=== PATIENT | female | born 1980 | race Caucasian/White ===

== ENCOUNTER 2019-01-22 06:20 | Inpatient (IN) | payer MEDICAID ==
[~2019-01-22] VITALS: Ht 162.6 cm; Wt 76.7 kg
[2019-01-22] MEDS ORDERED: PREN-93 PO (07:22)
[2019-01-22 07:30] VITALS: Ht 162.6 cm; Wt 76.7 kg
[2019-01-22] MEDS ORDERED: OXYTOCIN 30 UNITS/LR 500 ML IV SCH ×2 (07:30→11:22)
[2019-01-22] MEDS ORDERED: CARBOPROST 250 MCG INJ IM PRN ×2 (07:30→11:30)
[2019-01-22] MEDS ORDERED: MISOPROSTOL 200 MCG TAB PR PRN ×2 (07:30→11:30)
[2019-01-22] MEDS ORDERED: OXYTOCIN 30 UNITS/LR 500 ML IV PRN ×2 (07:30→11:30)
[2019-01-22] MEDS ORDERED: METHYLERGONOVINE 0.2 MG INJ IM PRN ×2 (07:30→11:30)
[2019-01-22] MEDS ORDERED: CEFAZOLIN 2 GM/50 ML (PMX) 50 ML IVPB ONE (07:30)
[2019-01-22 07:31] VITALS: BP 123/83; PULSE 82; RESP 20
[2019-01-22] MEDS: LACTATED RINGER'S 1,000 ML IV SCH ×3 (09:25→23:31)
[2019-01-22] MEDS ORDERED: AZITHROMYCIN 500MG/NS (PMX) 250 ML IVPB ONE (09:30)
--- NOTE | 2019-01-22 09:39 | PREAC ---
Date/Time of Note Date/Time of Note DATE: 01/22/19 TIME: 09:37 Anesthesia Eval and Record Evaluation Time Pre-Procedure Interview DATE: 01/22/19 TIME: 09:37 Age 38 Sex female NPO: 8 hrs Preoperative diagnosis Repeat Planned procedure Past Medical History Past Medical History: None Surgery & Anesthesia Issues No known issue Meds Anticoagulation: No Beta Ewelina within 24 hr: No Reason Beta Ewelina not given: Pt. not on B-Ewelina Reported Medications Vit No.124/Iron/FA ( Vitamin Tablet) 1 Each Tablet, 1 EACH PO DAILY, TAB 01/22/19 Current Medications Lactated Ringer's 1,000 ml @ 125 mls/hr Q8H IV Last administered on 01/22/19at 09:36; Admin Dose 125 MLS/HR; Start 01/22/19 at 07:26 Oxytocin/Lactated Ringer's 500 ml @ 500 mls/hr ONCE POST IV ; Start 01/22/19 at 07:30 Oxytocin/Lactated Ringer's 500 ml @ 125 mls/hr POST IV ; Start 01/22/19 at 07:30 Oxytocin/Lactated Ringer's 500 ml @ 0 mls/hr ONCE PRN IV .VAGINAL BLEEDING; Start 01/22/19 at 07:30 Methylergonovine Maleate (Methergine) 0.2 mg ONCE PRN IM .VAGINAL BLEEDING; Start 01/22/19 at 07:30 Carboprost Tromethamine (Hemabate) 250 mcg ONCE PRN IM .VAGINAL BLEEDING; Start 01/22/19 at 07:30 Misoprostol (Cytotec) 1,000 mcg ONCE PRN [place] .VAGINAL BLEEDING; Start 01/22/19 at 07:30 Azithromycin 250 ml @ 250 mls/hr ONCE ONCE IVPB ; Start 01/22/19 at 09:30; Stop 01/22/19 at 10:29 Meds reviewed: Yes Allergies Coded Allergies: No Known Allergy (Unverified , 01/22/19) Allergies Reviewed: Yes Labs/Studies Labs Reviewed: Reviewed by anesthesiologist Result Diagram: 01/22/19 8506 Laboratory Tests 01/22/19 07:50 test: N/A Pre-procedure Exam Last vitals Vital Signs Date Temp Pulse Resp B/P (MAP) Pulse Ox O2 O2 Flow FiO2 Time Delivery Rate 01/22/19 98.7 82 20 123/83 Room Air 07:31 (96) Airway: Adequate mouth opening Mallampati: Mallampati II Teeth: Normal Lung: Normal Heart: Normal ASA Physical Status ASA physical status: 2 Emergency: None Planned Anesthetic Neuraxial: Spinal Planned Pain Management Sub-arachniod narcotics Pre-operative Attestations Prior to commencing anesthesia and surgery, the patient was re-evaluated, there was verification of: *The patient's identity *The results of appropriate recent lab work and preoperative vital signs *The above evaluation not changing prior to induction *Anesthetic plan, risk benefits, alternative and complications discussed with patient/family; questions answered; patient/family understands, accepts and wishes to proceed. KELSEY NAPIER MD Jan 22, 2019 09:39
[2019-01-22] MEDS ORDERED: morphine SULFATE/PF (10 MG/10 ML) INJ ONE (09:42)
[2019-01-22] MEDS ORDERED: ONDANSETRON 4 MG INJ ONE (09:42)
[2019-01-22] MEDS ORDERED: PHENYLephrine (100 MCG/ML) 10ML SYG ONE (09:42)
[2019-01-22] MEDS ORDERED: OXYTOCIN 30 UNITS/LR 500 ML IV ONE (09:42)
[2019-01-22] MEDS ORDERED: OXYCODONE/ACETAMINOPHEN (5/325) TAB PO PRN (10:30)
[2019-01-22] MEDS ORDERED: MIDAZOLAM 1 MG/ML 2 ML INJ IV PRN (10:30)
[2019-01-22] MEDS ORDERED: FENTAnyl 50 MCG/ML VIAL IV PRN ×2 (10:30)
[2019-01-22] MEDS ORDERED: NALBUPHINE HCL (10 MG/1 ML) INJ IV PRN (10:30)
[2019-01-22] MEDS ORDERED: ALBUTEROL 0.083% (NEB) 2.5 MG/3 ML AMP HHN PRN (10:30)
[2019-01-22] MEDS ORDERED: NALOXONE (0.4 MG/ML) INJ IV PRN (10:30)
[2019-01-22] MEDS ORDERED: DIPHENHYDRAMINE 50 MG INJ IV PRN ×2 (10:30)
[2019-01-22] MEDS ORDERED: EPHEDrine 25 MG/5 ML SYG IV PRN (10:30)
[2019-01-22] MEDS ORDERED: morphine 2 MG INJ IV PRN ×2 (10:30)
[2019-01-22] MEDS ORDERED: HYDROmorphONE 1 MG/5 ML IV SYRINGE IV PRN (10:30)
[2019-01-22] MEDS ORDERED: ONDANSETRON 4 MG INJ IV PRN ×2 (10:30)
[2019-01-22] MEDS ORDERED: MEPERIDINE 25 MG INJ IV PRN (10:30)
[2019-01-22] MEDS ORDERED: IPRATROPIUM (NEB) 0.5 MG/2.5 ML AMP HHN PRN (10:30)
[2019-01-22] MEDS ORDERED: TRIMETHOBENZAMIDE 100 MG/ML VIAL IM PRN (10:30)
[2019-01-22] MEDS ORDERED: LABETALOL HCL 20MG INJ IV PRN (10:30)
[2019-01-22] MEDS ORDERED: KETOROLAC 30 MG INJ IV PRN ×2 (10:30)
[2019-01-22] MEDS: OXYTOCIN 30 UNITS/LR 500 ML IV SCH ×2 (11:14→15:12)
[2019-01-22] MEDS ORDERED: LACTATED RINGER'S 1,000 ML IV SCH (11:22)
[2019-01-22] MEDS ORDERED: METHYLERGONOVINE 0.2 MG TAB PO PRN (11:30)
[2019-01-22] MEDS ORDERED: LANOLIN HPA 1 PKT TOP PRN (11:30)
--- NOTE | 2019-01-22 12:01 | PREOPHP ---
DATE OF ADMISSION: 01/22/2019 HISTORY OF PRESENT ILLNESS: This is a 38-year-old lady, 5, para 2, EDC 01/27/2019, at 39 and 2/7 weeks, admitted to labor and delivery area for repeat . She had 2 previous C-sections. She is for repeat . She had care in [facility] and the care was uneventful. The procedures were explained to the patient and she understood everything totally. The risks, benefits, and alternatives were discussed with her as well. PAST PERSONAL HISTORY: No history of diabetes, TB, asthma. ALLERGIES: NO ALLERGIES. SOCIAL HISTORY: The patient does not smoke. She does not drink. MEDICATIONS: She does not take any drugs except her iron and vitamins. GYNECOLOGIC HISTORY: She had menarche at the age of 20, every 28 days interval, 3 to 4 days duration , and moderate in amount. FAMILY HISTORY: Noncontributory. OBSTETRICAL HISTORY: She is 5 para 2. Her first delivery was in 2006, second in 2010, both by . She had 2 abortions, one in 2013 and one in 2015, both first trimester of . REVIEW OF SYSTEMS: CARDIOVASCULAR: No chest pains. RESPIRATORY: No cough. GASTROINTESTINAL: No diarrhea, no vomiting. GENITOURINARY: No dysuria. PHYSICAL EXAMINATION: GENERAL: Reveals a conscious, coherent lady and in no acute distress. VITAL SIGNS: Her blood pressure 120/80, pulse rate 80 per minute, respirations 16 per minute. BREASTS, HEART AND LUNGS: Within normal limits. ABDOMEN: Soft, fundic height 38 cm. heart tones 140 per minute. PELVIC: Revealed the cervix to be 2 to 3 cm dilated, 100% effaced, station floating in cephalic pres entation with the bag of water intact. EXTREMITIES: No pedal edema. ADMITTING DIAGNOSIS: A 39 and 2/7 weeks' intrauterine in labor. The patient was planned t o have a repeat . The procedures were explained to the patient and she understood everythin g totally. The risks, benefits, and alternatives were discussed with her as well. Dictated By: ANABEL MUSTAFA/ANDRES Conf#: [id number] DID#: [id number]
--- NOTE | 2019-01-22 12:19 | PAC ---
Date/Time of Note Date/Time of Note DATE: 01/22/19 TIME: 12:19 Post-Anesthesia Notes Post-Anesthesia Note Last documented vital signs Vital Signs Date Temp Pulse Resp B/P (MAP) Pulse Ox O2 O2 Flow FiO2 Time Delivery Rate 01/22/19 98.7 82 20 123/83 Room Air 07:31 (96) Activity: WNL Respiratory function: WNL Cardiovascular function: WNL Mental status: Baseline Pain reasonably controlled: Yes Hydration appropriate: Yes Nausea/Vomiting absent: Yes KELSEY NAPIER MD Jan 22, 2019 12:19
--- NOTE | 2019-01-22 15:46 | OPR ---
DATE OF OPERATION: 01/22/2019 PREOPERATIVE DIAGNOSES: 1. A 39 and 2/7 weeks' intrauterine . 2. Previous section. 3. In early labor. POSTOPERATIVE DIAGNOSES: 1. A 39 and 2/7 weeks' intrauterine . 2. Previous section. 3. In early labor. OPERATION PERFORMED: Repeat low transverse section. SURGEON: Anabel Lopez MD DEPARTMENT CHAIR: Howard Mueller MD ANESTHESIA: Spinal. OPERATIVE TECHNIQUE: Under spinal anesthesia, the patient was prepped and draped in the usual fashio n for abdominal surgery. After checking for the effect of the anesthesia, the previous Pfannenstiel scar was excised. A 10 cm skin incision was performed. The incision was carried from the skin up to the fascia. Upon opening the skin up to the fascia, small blood vessels were noted to be oozing and these were all cauterized. Fascia was opened transversely followed by splitting the muscles vertica l, then the peritoneum vertically. Upon opening the abdominal cavity, the bladder blade was put in p lace. The lower uterine segment was noted to be paper thin. Then incision was performed about 2 inc hes above the lower uterine segment. An incision was carried from the serosa up to the endometrium a nd the lory was carried sideways with the aid of my 2 fingers. My left hand was inserted on the lowe r segment of the uterus and the bag of water was ruptured. Clear fluid was noted. Baby's head was d elivered with good fundal pressure. Baby's airway was quickly suctioned with amniotic fluid. The an terior shoulder and posterior shoulder and rest of the body of the baby was delivered. Cord was clam ped after 30 seconds. The baby's airway was quickly suctioned with amniotic fluid, then the baby was handed to the nursery nurse and weatherseal technician. The placenta was delivered manually and complete. The uterus was exteriorized. The uterus was cleansed with wet lap sponge to make sure that no feta l membranes were left behind. After correct sponge count, the uterus was closed in the usual fashion using #1 chromic for the first layer, continuous locking suture was used followed by #1 chromic for the second layer, imbricating sutures were used. Bleeders were checked and there was no bleeding not ed. After checking for any bleeders in which there were none, both tubes and ovaries were inspected. They were healthy looking. The back of the uterus where the broad ligament were checked for any he matoma and there was none noted. The uterus was pulled back to the pelvic cavity. Once again, uteri ne incision was checked for any bleeders and there was no bleeding noted. After correct sponge count , needle count and instrument count as confirmed by the signal maintenance technician and clerk carrier, the abdomen was cl osed in the usual fashion using 0 Vicryl for the peritoneum, 0 Vicryl for the muscles, for the fascia , 0 Vicryl continuous stitch was used followed by few [id number] sutures. For the subcutaneous tissue, it was closed with 3-0 Vicryl and the skin was closed with 3-0 Vicryl, subcuticular suture wa s used. The patient tolerated the procedure well. Estimated blood loss was about 600 mL. Vital sig ns were stable during and after the procedure. She delivered a healthy baby boy, 9 and 9, weig maribell 3250 grams, 7 pounds and 3 ounces, 18-1/4 inches long at 10:06 a.m. Dictated By: ANABEL MUSTAFA/ANDRES Conf#: [id number] DID#: [id number]
[2019-01-22 16:00] VITALS: BP 119/63; PULSE 75; RESP 18
[2019-01-22 17:00] VITALS: BP 119/63; PULSE 80; RESP 18
[2019-01-22 18:10] VITALS: BP 110/80; PULSE 76
[2019-01-22 19:55] VITALS: BP_SYST 101; BP_SYST 114; BP_DIAS 60; BP_DIAS 64; PULSE 75; PULSE 81; RESP 18
[2019-01-22] MEDS: SENNA/DOCUSATE NA (8.6MG/50MG) TAB PO SCH (23:08)
[2019-01-23 00:30] VITALS: BP 110/66; PULSE 78; RESP 18
[2019-01-23 04:02] VITALS: BP 108/68; PULSE 72; RESP 18
[2019-01-23 08:00] VITALS: BP 116/73; PULSE 85; RESP 18
[2019-01-23] MEDS: SENNA/DOCUSATE NA (8.6MG/50MG) TAB PO SCH ×2 (09:26→21:00)
[2019-01-23] MEDS: LACTATED RINGER'S 1,000 ML IV SCH ×3 (15:26→23:49)
[2019-01-23 16:00] VITALS: BP 112/80; PULSE 85; RESP 18
[2019-01-23] MEDS: IBUPROFEN 800 MG TAB PO PRN (17:16)
--- NOTE | 2019-01-23 18:52 | PN ---
Date/Time of Note Date/Time of Note DATE: 01/23/19 TIME: 18:51 Assessment/Plan VTE Prophylaxis Risk score (from Ns)>0 risk: 1 SCD applied (from Ns): Yes Pharmacological prophylaxis: NA/contraindicated Pharm contraindication: low risk/ambulating Lines/Catheters IV Catheter Type (from Nrs): Peripheral IV Assessment/Plan Assessment/Plan POSTCSECTION DAY 1 ORDERED ADVANCE DIET TOLERATED CBC ON 3RD POSTOP DAY Result Diagram: 01/23/19 0749 01/23/19 0749 Results 24hrs Laboratory Tests Test 01/23/19 06:45 01/23/19 07:49 Lab Scanned Report REFERENCE LAB White Blood Count 9.4 # Red Blood Count 4.35 Hemoglobin 12.1 Hematocrit 36.9 L Mean Corpuscular Volume 84.8 Mean Corpuscular Hemoglobin 27.8 L Mean Corpuscular Hemoglobin Concent 32.8 Red Cell Distribution Width 15.3 H Platelet Count 221 Mean Platelet Volume 10.7 H Immature Granulocytes % 0.600 H Neutrophils % 72.9 Lymphocytes % 17.7 Monocytes % 6.9 Eosinophils % 1.6 Basophils % 0.3 Nucleated Red Blood Cells % 0.0 Immature Granulocytes # 0.060 H Neutrophils # 6.8 Lymphocytes # 1.7 Monocytes # 0.7 Eosinophils # 0.2 Basophils # 0.0 Nucleated Red Blood Cells # 0.0 Sodium Level 136 Potassium Level 3.5 Chloride Level 110 Carbon Dioxide Level 23 Anion Gap 3 L Blood Urea Nitrogen 6 L Creatinine 0.41 L Est Glomerular Filtrat Rate mL/min > 60 Glucose Level 72 Calcium Level 8.1 L Subjective 24 Hr Interval Summary Free Text/Dictation POST CSECTION DAY 1 COMPLAIN OF INCISIONAL PAINS GOOD URINE OUTPUT PASSING GAS PER RECTUM NO BOWEL MOVEMENT YET Exam/Review of Systems Exam Vitals Vital Signs Date Temp Pulse Resp B/P (MAP) Pulse Ox O2 O2 Flow FiO2 Time Delivery Rate 01/23/19 98.2 85 18 112/80 16:00 (91) 01/23/19 Room Air 08:00 01/23/19 96 00:30 Intake and Output 01/22/19 01/22/19 01/23/19 1515:00 23:00 07:00 IntakeIntake Total 1500 ml 350 ml 400 ml OutputOutput Total 750 ml 473 ml 1650 ml BalanceBalance 750 ml -123 ml -1250 ml Exam VITAL SIGNS STABLE: YES AFEBRILE: YES BREAST NOT ENGORGED, NON-TENDER, NO APPRECIABLE MASS: YES LUNGS CLEAR, NO RALES, WHEEZES, RHONCHI: YES SINUS RHYTHM WITHOUT MURMUR: YES ABDOMEN: NON-TENDER FUNDUS: BELOW UMBILICUS BOWEL SOUNDS: PRESENT UTERUS: FIRM INCISION (CLEAN, DRY, AND INTACT): YES LOCHIA: LIGHT DEEP TENDON REFLEXES: 0 EXTREMITIES: NO CALF TENDERNESS EDEMA SCALE: NONE Results Results 24hrs Laboratory Tests Test 01/23/19 06:45 01/23/19 07:49 Lab Scanned Report REFERENCE LAB White Blood Count 9.4 # Red Blood Count 4.35 Hemoglobin 12.1 Hematocrit 36.9 L Mean Corpuscular Volume 84.8 Mean Corpuscular Hemoglobin 27.8 L Mean Corpuscular Hemoglobin Concent 32.8 Red Cell Distribution Width 15.3 H Platelet Count 221 Mean Platelet Volume 10.7 H Immature Granulocytes % 0.600 H Neutrophils % 72.9 Lymphocytes % 17.7 Monocytes % 6.9 Eosinophils % 1.6 Basophils % 0.3 Nucleated Red Blood Cells % 0.0 Immature Granulocytes # 0.060 H Neutrophils # 6.8 Lymphocytes # 1.7 Monocytes # 0.7 Eosinophils # 0.2 Basophils # 0.0 Nucleated Red Blood Cells # 0.0 Sodium Level 136 Potassium Level 3.5 Chloride Level 110 Carbon Dioxide Level 23 Anion Gap 3 L Blood Urea Nitrogen 6 L Creatinine 0.41 L Est Glomerular Filtrat Rate mL/min > 60 Glucose Level 72 Calcium Level 8.1 L Medications Medication Current Medications Lactated Ringer's 1,000 ml @ 125 mls/hr Q8H IV Last administered on 01/22/19at 23:31; Admin Dose 125 MLS/HR; Start 01/22/19 at 07:26 Oxytocin/Lactated Ringer's 500 ml @ 500 mls/hr ONCE POST IV ; Start 01/22/19 at 07:30 Oxytocin/Lactated Ringer's 500 ml @ 125 mls/hr POST IV Last adminis tered on 01/22/19at 15:12; Admin Dose 125 MLS/HR; Start 01/22/19 at 07:30 Oxytocin/Lactated Ringer's 500 ml @ 0 mls/hr ONCE PRN IV .VAGINAL BLEEDING; Start 01/22/19 at 07:30 Methylergonovine Maleate (Methergine) 0.2 mg ONCE PRN IM .VAGINAL BLEEDING; Start 01/22/19 at 07:30 Carboprost Tromethamine (Hemabate) 250 mcg ONCE PRN IM .VAGINAL BLEEDING; Start 01/22/19 at 07:30 Misoprostol (Cytotec) 1,000 mcg ONCE PRN [place] .VAGINAL BLEEDING; Start 01/22/19 at 07:30 Methylergonovine Maleate (Methergine) 0.2 mg Q6H PRN PO .VAGINAL BLEEDING; Start 01/22/19 at 11:30 Acetaminophen/ Hydrocodone Bitart ([place] (5/325)) 1 tab Q4H PRN PO MODERATE PAIN LEVEL 4-6; Start 01/22/19 at 11:30 Acetaminophen/ Hydrocodone Bitart ([place] (5/325)) 2 tab Q4H PRN PO SEVERE PAIN LEVEL 7-10; Start 01/22/19 at 11:30 Ibuprofen (Motrin) 800 mg Q8 PRN PO MILD PAIN LEVEL 1-3 Last administered on 01/23/19at 17:16; Admin Dose 800 MG; Start 01/22/19 at 11:30 Simethicone (Mylicon) 160 mg Q8H PRN PO .GAS Last administered on 01/23/19at 12:39; Admin Dose 160 MG; Start 01/22/19 at 11:30 Senna/Docusate Sodium (Senokot-S) 1 tab BID PO Last administered on 01/23/19at 09:26; Admin Dose 1 TAB; Start 01/22/19 at 21:00 Lanolin (Lanolin Hpa) 1 applic BEDSIDE MEDICATION PRN TOP .NIPPLES; Start 01/22/19 at 11:30 Diphtheria/ Tetanus/Acell Pertussis (Adacel) 0.5 ml ONCE ONCE IM* ; Start 01/25/19 at 09:00; Stop 01/25/19 at 09:01 Measles/Mumps/ Rubella Vaccine Live (Mmr Ii Vaccine) 0.5 ml ONCE ONCE SC* ; Start 01/25/19 at 09:00; Stop 01/25/19 at 09:01 Oxytocin/Lactated Ringer's 500 ml @ 0 mls/hr ONCE PRN IV .VAGINAL BLEEDING; Start 01/22/19 at 11:30 Methylergonovine Maleate (Methergine) 0.2 mg ONCE PRN IM .VAGINAL BLEEDING; Start 01/22/19 at 11:30 Carboprost Tromethamine (Hemabate) 250 mcg ONCE PRN IM .VAGINAL BLEEDING; Start 01/22/19 at 11:30 Misoprostol (Cytotec) 1,000 mcg ONCE PRN [place] .VAGINAL BLEEDING; Start 01/22/19 at 11:30 ANABEL MOISE MD Jan 23, 2019 18:52
[2019-01-23 20:10] VITALS: BP 106/73; PULSE 82; RESP 18
[2019-01-24] MEDS: HYDROCODONE/APAP (5/325) TAB PO PRN ×3 (00:35→20:41)
[2019-01-24 04:05] VITALS: BP_SYST 70; PULSE 80
[2019-01-24] MEDS: IBUPROFEN 800 MG TAB PO PRN (05:50)
[2019-01-24] MEDS: LACTATED RINGER'S 1,000 ML IV SCH ×3 (07:26→23:26)
[2019-01-24 08:50] VITALS: BP 110/73; PULSE 79; RESP 18
[2019-01-24] MEDS: SENNA/DOCUSATE NA (8.6MG/50MG) TAB PO SCH ×2 (10:24→20:40)
[2019-01-24] MEDS ORDERED: IBUPROFEN 600 MG TAB PO PRN (13:00)
--- NOTE | 2019-01-24 14:26 | PN ---
Date/Time of Note Date/Time of Note DATE: 01/24/19 TIME: 14:25 Assessment/Plan VTE Prophylaxis Risk score (from Nsg)>0 risk: 3 SCD applied (from Nsg): Yes Pharmacological prophylaxis: NA/contraindicated Pharm contraindication: low risk/ambulating Lines/Catheters IV Catheter Type (from Nrsg): Peripheral IV Assessment/Plan Assessment/Plan POST CSECTION DAY 2 HOME TOMORROW CBC TOMORROW COUNSELED INSTRUCTED PRESCRIPTION GIVEN FOR PAIN RETURN TO CLINIC IN 2 WEEKS CALL OFFICE IF THERE IS ANY PROBLEM OR CONCERN CONTINUE WITH VITAMINS OD AND FERROUS SULFATE 325MG PO TID DIET ADVISED Result Diagram: 01/23/19 0749 01/23/19 0749 Subjective 24 Hr Interval Summary Free Text/Dictation POST CSECTION DAY 2 LITTLE BOWEL MOVEMENT GOOD URINE OUTPUT FEELS LESS INCISIONAL PAINS Exam/Review of Systems Exam Vitals Vital Signs Date Temp Pulse Resp B/P (MAP) Pulse Ox O2 O2 Flow FiO2 Time Delivery Rate 01/24/19 98.0 80 70/ Room Air 04:05 01/23/19 18 20:10 01/23/19 96 00:30 Intake and Output 01/23/19 01/23/19 01/24/19 1515:00 23:00 07:00 IntakeIntake Total 495 ml OutputOutput Total 2600 ml BalanceBalance -2105 ml Exam VITAL SIGNS STABLE: YES AFEBRILE: YES BREAST NOT ENGORGED, NON-TENDER, NO APPRECIABLE MASS: YES LUNGS CLEAR, NO RALES, WHEEZES, RHONCHI: YES SINUS RHYTHM WITHOUT MURMUR: YES ABDOMEN: NON-TENDER FUNDUS: BELOW UMBILICUS BOWEL SOUNDS: PRESENT UTERUS: FIRM INCISION (CLEAN, DRY, AND INTACT): YES LOCHIA: LIGHT DEEP TENDON REFLEXES: 0 EXTREMITIES: NO CALF TENDERNESS EDEMA SCALE: NONE Medications Medication Current Medications Lactated Ringer's 1,000 ml @ 125 mls/hr Q8H IV Last administered on 01/22/19at 23:31; Admin Dose 125 MLS/HR; Start 01/22/19 at 07:26 Oxytocin/Lactated Ringer's 500 ml @ 500 mls/hr ONCE POST IV ; Start 01/22/19 at 07:30 Oxytocin/Lactated Ringer's 500 ml @ 125 mls/hr POST IV Last administered on 01/22/19at 15:12; Admin Dose 125 MLS/HR; Start 01/22/19 at 07:30 Oxytocin/Lactated Ringer's 500 ml @ 0 mls/hr ONCE PRN IV .VAGINAL BLEEDING; Start 01/22/19 at 07:30 Methylergonovine Maleate (Methergine) 0.2 mg ONCE PRN IM .VAGINAL BLEEDING; Start 01/22/19 at 07:30 Carboprost Tromethamine (Hemabate) 250 mcg ONCE PRN IM .VAGINAL BLEEDING; Start 01/22/19 at 07:30 Misoprostol (Cytotec) 1,000 mcg ONCE PRN [place] .VAGINAL BLEEDING; Start 01/22/19 at 07:30 Methylergonovine Maleate (Methergine) 0.2 mg Q6H PRN PO .VAGINAL BLEEDING; Start 01/22/19 at 11:30 Acetaminophen/ Hydrocodone Bitart ([place] (5/325)) 1 tab Q4H PRN PO MODERATE PAIN LEVEL 4-6; Start 01/22/19 at 11:30 Acetaminophen/ Hydrocodone Bitart ([place] (5/325)) 2 tab Q4H PRN PO SEVERE PAIN LEVEL 7-10 Last administered on 01/24/19at 10:25; Admin Dose 2 TAB; Start 01/22/19 at 11:30 Simethicone (Mylicon) 160 mg Q8H PRN PO .GAS Last administered on 01/24/19 10:24; Admin Dose 160 MG; Start 01/22/19 at 11:30 Senna/Docusate Sodium (Senokot-S) 1 tab BID PO Last administered on 01/24/19 10:24; Admin Dose 1 TAB; Start 01/22/19 at 21:00 Lanolin (Lanolin Hpa) 1 applic BEDSIDE MEDICATION PRN TOP .NIPPLES; Start 01/22/19 at 11:30 Diphtheria/ Tetanus/Acell Pertussis (Adacel) 0.5 ml ONCE ONCE IM* ; Start 01/25/19 at 09:00; Stop 01/25/19 at 09:01 Measles/Mumps/ Rubella Vaccine Live (Mmr Ii Vaccine) 0.5 ml ONCE ONCE SC* ; Start 01/25/19 at 09:00; Stop 01/25/19 at 09:01 Oxytocin/Lactated Ringer's 500 ml @ 0 mls/hr ONCE PRN IV .VAGINAL BLEEDING; Start 01/22/19 at 11:30 Methylergonovine Maleate (Methergine) 0.2 mg ONCE PRN IM .VAGINAL BLEEDING; Start 01/22/19 at 11:30 Carboprost Tromethamine (Hemabate) 250 mcg ONCE PRN IM .VAGINAL BLEEDING; Start 01/22/19 at 11:30 Misoprostol (Cytotec) 1,000 mcg ONCE PRN [place] .VAGINAL BLEEDING; Start 01/22/19 at 11:30 Loratadine/ Pseudoephedrine Sulfate (Claritin-D 12 Hr) 1 tab Q12 PO ; Start 01/24/19 at 14:00 Ibuprofen (Motrin) 600 mg Q6H PRN PO MILD PAIN LEVEL 1-3; Start 01/24/19 at 13:00 Guaifenesin/ Dextromethorphan (Robitussin Dm Liquid Cup) 10 ml Q8H PRN PO COUGH; Start 01/24/19 at 13:00 ANABEL MOISE MD Jan 24, 2019 14:26
[2019-01-24] MEDS: LORATADINE/PSEUDOEPHED (SR) TAB PO SCH (15:02)
[2019-01-24] MEDS: GUAIFENESIN/DM 5ML CUP PO PRN (15:03)
[2019-01-24 16:05] VITALS: BP 119/85; PULSE 75; RESP 17
[2019-01-24 20:15] VITALS: BP 114/70; PULSE 75; RESP 18
[2019-01-25] MEDS: HYDROCODONE/APAP (5/325) TAB PO PRN ×3 (02:46→14:54)
[2019-01-25] MEDS: LORATADINE/PSEUDOEPHED (SR) TAB PO SCH ×2 (03:47→14:54)
[2019-01-25 04:05] VITALS: BP 119/88; PULSE 80; RESP 18
[2019-01-25 08:00] VITALS: BP 116/67; PULSE 79; RESP 18
[2019-01-25] MEDS ORDERED: DIPHTH/TET/ACEL PERTUSS (ADULT) 0.5 ML VIAL IM* ONE (09:00)
[2019-01-25] MEDS ORDERED: MEASLES,MUMPS,RUBELLA VACCINE INJ SC* ONE (09:00)
[2019-01-25] MEDS: GUAIFENESIN/DM 5ML CUP PO PRN (09:04)
[2019-01-25] MEDS: SENNA/DOCUSATE NA (8.6MG/50MG) TAB PO SCH (09:04)
[2019-01-25 16:00] VITALS: BP_SYST 115; BP_SYST 125; BP_DIAS 67; BP_DIAS 85; PULSE 67; PULSE 80; RESP 18
--- NOTE | 2019-01-26 18:40 | DELSUM ---
Delivery Summary A-C Datetime Report Generated by CPN: 01/26/2019 18:39 DELIVERY PERSONNEL Civil Engineer In Training: Angel, Dixie MATERNAL INFORMATION Delivery Anesthesia: Spinal Medications in Delivery: See anesthesia Delivery QBL (ml): 300 Placenta Cultured: No Maternal Complications: None LABOR SUMMARY EDC: 01/27/2019 00:00 No. Babies in Womb: 1 Attempted: No Labor Anesthesia: None LABOR INFORMATION Reason for Induction: Not Applicable Oxytocin: N/A Group B Beta Strep: Positive Antibiotics # of Doses: Ancef 2 grams Antibiotics Time of Last Dose: 01/22/2019 09:43 Steroids Given: None Reason Steroids Not Administered: Not Applicable MEMBRANES Membranes Rupture Method: Artificial Rupture of Membranes: 01/22/2019 10:05 Length of Rupture (hr): 0.02 Amniotic Fluid Color: Bloody Amniotic Fluid Amount: Moderate Amniotic Fluid Odor: Normal STAGES OF LABOR Stage 3 hr: 0 Stage 3 min: 1 CSECTION DELIVERY Primary Indication: Repeat Elective Secondary Indication: N/A CSection Urgency: Elective CSection Incidence: Repeat Labor: No Labor Elective: N/A CSection Incision: Lower Uterine Transverse BABY A INFORMATION Delivery Date/Time: 01/22/2019 10:06 Method of Delivery: Born in Route : No : N/A Forceps: N/A Vacuum Extraction: N/A Shoulder Dystocia : N/A SHOULDER DYSTOCIA BABY A Delivery Date/Time: 01/22/2019 10:06 PRESENTATION/POSITION BABY A Presentation: Cephalic Cephalic Presentation: Vertex Vertex Position: Left Occipital Posterior Breech Presentation: N/A PLACENTA INFORMATION BABY A Placenta Delivery Time : 01/22/2019 10:07 Placenta Method of Delivery: Manual Removal Placenta Status: Delivered SCORES BABY A Heart Rate 1 min: >100 bpm Resp Effort 1 min: Good Cry Reflex Irritability 1 min: Cough/Sneeze/Pulls Away Muscle Tone 1 min: Active Motion Color 1 min: Body [place], Extremit Blue Resuscitation Effort 1 min: Tactile Stimulation SCORE 1 MIN: 9 Heart Rate 5 min: >100 bpm Resp Effort 5 min: Good Cry Reflex Irritability 5 min: Cough/Sneeze/Pulls Away Muscle Tone 5 min: Active Motion Color 5 min: Body [place], Extremit Blue Resuscitation Effort 5 min: Tactile Stimulation SCORE 5 MIN: 9 INFORMATION BABY A Gestational Age at Delivery: 39.2 Gestational Status: Full Term- 39- 40.6 Weeks Infant Outcome : Liveborn Infant Condition : Stable Sex: Male IDENTIFICATION/MEDS BABY A ID Band Number: [id number] ID Band Location: Right Leg; Left Arm Sensor Applied: Yes Sensor Number: [id number] Sensor Location : Cord Clamp Vitamin K Given : Not Given Erythromycin Given: Not Given WEIGHT/LENGTH BABY A Infant Birthweight (gm): 3250 Infant Weight (lb): 7 Weight (oz): 3 Length (in): 18.25 Length (cm): 46.36 CORD INFORMATION BABY A No. Cord Vessels: 3 Nuchal Cord : N/A Cord Blood Taken: Yes Suction: Mouth; Nose ASSESSMENT BABY A Infant Complications: None Physical Findings at Delivery: Within Normal Limits Infant Respirations: Appears Normal Doughnut Icer/ALS Called : No Infant Care By: Libertad BARRON /Lucita Transferred To: Remains with Mother
== END 2019-01-25 18:39 | disposition home or self-care (01) | DRG 788 ==
LOC: L-D 06:20 → PP1 16:00
PROVIDERS: ADMIT Obstetrics & Gynecology; ATTEND Obstetrics & Gynecology
PROC: 10D00Z1 Extraction of Products of Conception, Low, Open Approach (ICD-10-PCS; principal; 2019-01-22 09:00)
DX: O34.211 Maternal care for low transverse scar from previous cesarean delivery (principal); Z3A.39 39 weeks gestation of pregnancy; Z37.0 Single live birth
CPT/HCPCS: 71046; 80048; 85025; 85610; 85730; 86592; 86850; 86900; 86901; 87340; 99464; J0456; J0690; J1885; J2274; J2370; J2405; J2590; J7120